=== PATIENT | female | born 1930 | race Caucasian/White ===

== ENCOUNTER 2020-04-02 12:13 | Day surgery (SDC) | payer MEDICARE, BC ==
[2020-04-02] MEDS ORDERED: Sodium Chloride 0.9% 20 ML ONE (12:53)
[2020-04-02] MEDS ORDERED: Acetaminophen 500 MG TAB PO SCH (13:00)
[2020-04-02] MEDS ORDERED: diphenhydrAMINE 25 MG CAP PO SCH (13:00)
[2020-04-02 16:43] VITALS: BP 151/64; TEMP 97.8
== END 2020-04-02 19:00 | disposition home or self-care (01) ==
LOC: ONC/OP 12:13 → ONC 12:16 → ONC/OP 19:00
PROVIDERS: ATTEND Internal Medicine Hematology & Oncology
PROC: 30233N1 Transfusion of Nonautologous Red Blood Cells into Peripheral Vein, Percutaneous Approach (ICD-10-PCS; principal; 2020-04-02)
DX: D64.9 Anemia, unspecified (principal); D69.6 Thrombocytopenia, unspecified
CPT/HCPCS: 36430; 86850; 86900; 86901; P9016; Q0163

== ENCOUNTER 2020-05-04 10:07 | Day surgery (SDC) | payer MEDICARE, BC ==
[2020-05-04] MEDS ORDERED: diphenhydrAMINE 25 MG CAP PO SCH (10:15)
[2020-05-04] MEDS ORDERED: Acetaminophen 500 MG TAB PO SCH (10:15)
[2020-05-04] MEDS ORDERED: Sodium Chloride 0.9% 30 ML ONE (11:11)
[2020-05-04 14:09] VITALS: BP 156/71; TEMP 98
== END 2020-05-04 14:09 | disposition home or self-care (01) ==
LOC: ONC/OP 10:07
PROVIDERS: ATTEND Internal Medicine Hematology & Oncology
PROC: 30233N1 Transfusion of Nonautologous Red Blood Cells into Peripheral Vein, Percutaneous Approach (ICD-10-PCS; principal; 2020-05-04)
DX: D64.9 Anemia, unspecified (principal); D69.6 Thrombocytopenia, unspecified; D50.0 Iron deficiency anemia secondary to blood loss (chronic); D72.818 Other decreased white blood cell count; D51.3 Other dietary vitamin B12 deficiency anemia; D63.1 Anemia in chronic kidney disease; N18.30 Chronic kidney disease, stage 3 unspecified
CPT/HCPCS: 36415; 36430; 82728; 83540; 83550; 86850; 86900; 86901; J1642; P9016; Q0163

== ENCOUNTER 2020-08-17 08:57 | Day surgery (SDC) | payer MEDICARE, BC ==
[2020-08-17] MEDS ORDERED: Sodium Chloride 0.9% 20 ML ONE (09:35)
[2020-08-17] MEDS ORDERED: Acetaminophen 500 MG TAB PO SCH (10:00)
[2020-08-17] MEDS ORDERED: diphenhydrAMINE 25 MG CAP PO SCH (10:00)
[2020-08-17 14:18] VITALS: BP 160/72; TEMP 97.8
== END 2020-08-17 14:24 | disposition home or self-care (01) ==
LOC: ONC/OP 08:57
PROVIDERS: ATTEND Internal Medicine Hematology & Oncology
PROC: 30233N1 Transfusion of Nonautologous Red Blood Cells into Peripheral Vein, Percutaneous Approach (ICD-10-PCS; principal; 2020-08-17)
DX: D64.9 Anemia, unspecified (principal); D69.6 Thrombocytopenia, unspecified
CPT/HCPCS: 36430; 86850; 86900; 86901; P9016; Q0163

== ENCOUNTER 2021-12-02 12:42 | Outpatient (CLI) | payer MEDICARE, BC | END 2021-12-02 12:43 | disposition home or self-care (01) | LOC: BICRAD 12:42 | PROVIDERS: ATTEND Nurse Practitioner Family | DX: M25.531 Pain in right wrist (principal); M19.031 Primary osteoarthritis, right wrist ==

== ENCOUNTER 2022-01-20 09:06 | Inpatient (IN) | payer MEDICARE, BC ==
[2022-01-20 10:16] LABS: #Lymphocytes 0.3 thou/uL (1.20-3.40); #Monocytes 0.4 thou/uL (0.11-0.59); #Neutrophils 5.5 thou/uL (1.40-6.50); %Basophils 0.5 % (0.0-1.0); %Eosinophils 0.3 % (0.0-10.0); %Lymphocytes 5.1 % (21.0-51.0); %Monocytes 6.2 % (0.0-10.0); Hemoglobin 12.8 g/dL (12.0-16.0); Mean Corpuscular HGB CONC 33.5 g/dL (32.0-36.0); Mean Corpuscular Hemoglobin 33.3 pg (27.0-31.0); Mean Corpuscular Volume 99.6 fl (78.0-98.0); Mean Platelet Volume 9.2 fL (7.4-10.4); Platelet Count 214 thou/uL (130-400); RBC Distribution Width 15.7 % (11.5-14.5); Red Blood Cell (RBC) Count 3.83 mill/uL (4.20-5.40); White Blood Cell (WBC) Count 6.2 thou/uL (4.8-10.8)
[2022-01-20 10:17] LABS: Bilirubin Negative (Negative); Blood, Urine 1+ (Negative); Clarity Extra Turbid (Clear); Glucose, Urine (Dipstick) Normal (Negative); Ketone, Urine 10 mg/dL (Negative); Leukocyte 500 Leu/uL (Negative); Nitrite Negative (Negative); Protein, Urine (Dipstick) 200 mg/dL (Neg-Trace); Specific Gravity, Urine 1.013 (1.002-1.036); Urobilinogen Normal mg/dL (Less than 2); WBC/HPF Greater than 50 HPF (0-3)
[2022-01-20 10:23] LABS: Bacteria/HPF 4+ HPF (None Seen)
[2022-01-20] MEDS ORDERED: cefTRIAXone\\ROCEPHIN 1 GM VIAL ONE (10:34)
[2022-01-20] MEDS ORDERED: Ondansetron PF 4 MG/2 ML Vial ONE (10:34)
[2022-01-20 10:40] LABS: ALT (SGPT) 7 U/L (8-55); AST (SGOT) 16 U/L (5-34); Albumin 4.1 g/dL (3.4-4.8); Alkaline Phosphatase 80 U/L (40-110); Anion Gap 17 mmol/L (10-20); BUN (Urea Nitrogen) 10 mg/dL (9.8-20.1); Bilirubin, Total 0.6 mg/dL (0.2-1.2); Calc. Creatinine Clearance 0 mL/min (70-130); Carbon Dioxide 18 mmol/L (23-31); Chloride 80 mmol/L (98-107); Estimated GFR 79; Globulin 2.8 g/dL (2.4-3.5); Glucose 146 mg/dL (83-110); Lipase 27 U/L (8-78); Potassium 4.5 mmol/L (3.5-5.1); Protein, Total 6.9 g/dL (5.8-8.1)
[2022-01-20 11:06] LABS: Sodium 110 mmol/L (136-145)
[2022-01-20 12:31] LABS: Anion Gap 12 mmol/L (10-20); BUN (Urea Nitrogen) 9 mg/dL (9.8-20.1); Calc. Creatinine Clearance 0 mL/min (70-130); Calcium 8.4 mg/dL (7.8-10.44); Carbon Dioxide 21 mmol/L (23-31); Chloride 84 mmol/L (98-107); Estimated GFR 84; Glucose 123 mg/dL (83-110); Potassium 4.4 mmol/L (3.5-5.1)
[2022-01-20 12:36] LABS: Sodium 113 mmol/L (136-145)
[2022-01-20] MEDS ORDERED: Ondansetron PF 4 MG/2 ML Vial IVP PRN (12:38)
[2022-01-20] MEDS ORDERED: Acetaminophen 325 MG TAB PO PRN (12:38)
[2022-01-20] MEDS ORDERED: Iopamidol-370 76% 500 ML 1 ML ONE (14:17)
[2022-01-20 14:43] LABS: Anion Gap 14 mmol/L (10-20); BUN (Urea Nitrogen) 9 mg/dL (9.8-20.1); Calc. Creatinine Clearance 0 mL/min (70-130); Calcium 8.7 mg/dL (7.8-10.44); Carbon Dioxide 17 mmol/L (23-31); Chloride 85 mmol/L (98-107); Estimated GFR 84; Glucose 126 mg/dL (83-110); Magnesium 1.5 mg/dL (1.6-2.6); Potassium 4.2 mmol/L (3.5-5.1)
[2022-01-20 14:49] LABS: Sodium 112 mmol/L (136-145)
[2022-01-20 16:57] VITALS: BMI 34.0
[2022-01-20 17:01] LABS: Anion Gap 13 mmol/L (10-20); BUN (Urea Nitrogen) 9 mg/dL (9.8-20.1); Calc. Creatinine Clearance 75 mL/min (70-130); Carbon Dioxide 19 mmol/L (23-31); Chloride 85 mmol/L (98-107); Estimated GFR 83; Glucose 116 mg/dL (83-110); Potassium 4.2 mmol/L (3.5-5.1)
[2022-01-20 17:20] LABS: Sodium 113 mmol/L (136-145)
[2022-01-20] MEDS ORDERED: FLU VACC QS2022-23(65YR UP)/PF 240 MCG/0.7 ML SYRINGE IM ONE (17:30)
[2022-01-20 18:42] LABS: Anion Gap 14 mmol/L (10-20); BUN (Urea Nitrogen) 8 mg/dL (9.8-20.1); Calc. Creatinine Clearance 73 mL/min (70-130); Calcium 8.9 mg/dL (7.8-10.44); Carbon Dioxide 18 mmol/L (23-31); Chloride 85 mmol/L (98-107); Estimated GFR 83; Glucose 142 mg/dL (83-110); Potassium 4.2 mmol/L (3.5-5.1)
[2022-01-20 18:51] LABS: Sodium 113 mmol/L (136-145)
[2022-01-20 19:15] LABS: SARS-CoV-2 NAA Rapid Test Not Detected (NotDetected)
[2022-01-20] MEDS ORDERED: Sodium Chloride 0.9% 1,000 ML IV SCH (21:30)
[2022-01-20 23:38] LABS: Anion Gap 13 mmol/L (10-20); BUN (Urea Nitrogen) 9 mg/dL (9.8-20.1); Calc. Creatinine Clearance 83 mL/min (70-130); Calcium 8.5 mg/dL (7.8-10.44); Carbon Dioxide 18 mmol/L (23-31); Chloride 85 mmol/L (98-107); Estimated GFR 85; Glucose 93 mg/dL (83-110); Potassium 3.8 mmol/L (3.5-5.1)
[2022-01-20 23:46] LABS: Sodium 112 mmol/L (136-145)
[2022-01-21 04:42] LABS: #Eosinphils 0.1 thou/uL (0.0-0.7); #Lymphocytes 0.5 thou/uL (1.20-3.40); #Monocytes 0.7 thou/uL (0.11-0.59); #Neutrophils 4.1 thou/uL (1.40-6.50); %Basophils 0.1 % (0.0-1.0); %Eosinophils 0.9 % (0.0-10.0); %Lymphocytes 9.4 % (21.0-51.0); %Monocytes 12.9 % (0.0-10.0); %Neutrophils 76.7 % (42.0-75.0); Hemoglobin 11.1 g/dL (12.0-16.0); Mean Corpuscular HGB CONC 33.4 g/dL (32.0-36.0); Mean Corpuscular Hemoglobin 33.7 pg (27.0-31.0); Mean Platelet Volume 7.7 fL (7.4-10.4); Platelet Count 185 thou/uL (130-400); RBC Distribution Width 15.5 % (11.5-14.5); White Blood Cell (WBC) Count 5.3 thou/uL (4.8-10.8)
[2022-01-21 05:05] LABS: Anion Gap 11 mmol/L (10-20); BUN (Urea Nitrogen) 8 mg/dL (9.8-20.1); Calc. Creatinine Clearance 82 mL/min (70-130); Calcium 8.4 mg/dL (7.8-10.44); Carbon Dioxide 21 mmol/L (23-31); Chloride 86 mmol/L (98-107); Estimated GFR 85; Glucose 88 mg/dL (83-110); Potassium 3.7 mmol/L (3.5-5.1)
[2022-01-21 05:11] LABS: Sodium 114 mmol/L (136-145)
[2022-01-21] MEDS: Levothyroxine Sodium 50 MCG TAB PO SCH (06:00)
[2022-01-21] MEDS ORDERED: Sodium Chloride 0.9% 1,000 ML IV SCH ×2 (06:42→12:40)
[2022-01-21] MEDS ORDERED: Magnesium 2 GM/50 ML(in water) 2 GM in Premix Bag 1 BAG IVPB SCH (07:45)
[2022-01-21] MEDS ORDERED: Ondansetron ODT 8 MG TAB SL SCH (09:25)
[2022-01-21] MEDS: Cholecalciferol (Vitamin D3) 400 UNITS TAB PO SCH (09:44)
[2022-01-21] MEDS: Enoxaparin Sodium 40 MG/0.4 ML SYRINGE SC SCH (09:44)
[2022-01-21] MEDS: Potassium Chloride 10 MEQ TAB PO SCH ×2 (09:44→09:56)
[2022-01-21 11:21] LABS: Anion Gap 13 mmol/L (10-20); BUN (Urea Nitrogen) 8 mg/dL (9.8-20.1); Calc. Creatinine Clearance 78 mL/min (70-130); Calcium 8.7 mg/dL (7.8-10.44); Carbon Dioxide 21 mmol/L (23-31); Chloride 85 mmol/L (98-107); Estimated GFR 84; Glucose 98 mg/dL (83-110); Potassium 3.8 mmol/L (3.5-5.1)
[2022-01-21 11:38] LABS: Sodium 115 mmol/L (136-145)
[2022-01-21] MEDS: cefTRIAXone\\ROCEPHIN 1 GM in Sodium Chloride 0.9% 100 ML IVPB SCH (16:14)
[2022-01-21 16:30] LABS: Anion Gap 14 mmol/L (10-20); BUN (Urea Nitrogen) 6 mg/dL (9.8-20.1); Calc. Creatinine Clearance 86 mL/min (70-130); Calcium 8.3 mg/dL (7.8-10.44); Carbon Dioxide 17 mmol/L (23-31); Chloride 88 mmol/L (98-107); Estimated GFR 86; Glucose 99 mg/dL (83-110); Magnesium 2.3 mg/dL (1.6-2.6); Potassium 4.8 mmol/L (3.5-5.1)
[2022-01-21 16:53] LABS: Sodium 114 mmol/L (136-145)
[2022-01-21 20:26] LABS: Anion Gap 14 mmol/L (10-20); BUN (Urea Nitrogen) 7 mg/dL (9.8-20.1); Calc. Creatinine Clearance 82 mL/min (70-130); Calcium 8.4 mg/dL (7.8-10.44); Carbon Dioxide 17 mmol/L (23-31); Chloride 88 mmol/L (98-107); Estimated GFR 85; Glucose 94 mg/dL (83-110); Potassium 4.3 mmol/L (3.5-5.1)
[2022-01-21 20:34] LABS: Sodium 115 mmol/L (136-145)
[2022-01-21] MEDS ORDERED: Simvastatin 40 MG TAB PO SCH (21:00)
[2022-01-21] MEDS ORDERED: Atorvastatin Calcium 20 MG TAB PO SCH (21:00)
[2022-01-21 23:03] LABS: Anion Gap 12 mmol/L (10-20); BUN (Urea Nitrogen) 7 mg/dL (9.8-20.1); Calc. Creatinine Clearance 85 mL/min (70-130); Calcium 8.5 mg/dL (7.8-10.44); Carbon Dioxide 21 mmol/L (23-31); Chloride 90 mmol/L (98-107); Estimated GFR 86; Glucose 86 mg/dL (83-110); Potassium 3.8 mmol/L (3.5-5.1)
[2022-01-21 23:09] LABS: Sodium 119 mmol/L (136-145)
[2022-01-22 04:58] LABS: #Eosinphils 0.1 thou/uL (0.0-0.7); #Lymphocytes 0.4 thou/uL (1.20-3.40); #Monocytes 0.5 thou/uL (0.11-0.59); #Neutrophils 3.2 thou/uL (1.40-6.50); %Basophils 0.6 % (0.0-1.0); %Eosinophils 2.1 % (0.0-10.0); %Lymphocytes 9.4 % (21.0-51.0); %Monocytes 11.1 % (0.0-10.0); %Neutrophils 76.8 % (42.0-75.0); Hemoglobin 11.8 g/dL (12.0-16.0); Mean Corpuscular HGB CONC 32.2 g/dL (32.0-36.0); Mean Corpuscular Hemoglobin 32.8 pg (27.0-31.0); Mean Platelet Volume 9.9 fL (7.4-10.4); Platelet Count 135 thou/uL (130-400); RBC Distribution Width 15.5 % (11.5-14.5); Red Blood Cell (RBC) Count 3.58 mill/uL (4.20-5.40); White Blood Cell (WBC) Count 4.2 thou/uL (4.8-10.8)
[2022-01-22] MEDS: Levothyroxine Sodium 50 MCG TAB PO SCH (05:24)
[2022-01-22 08:32] LABS: Anion Gap 14 mmol/L (10-20); BUN (Urea Nitrogen) 8 mg/dL (9.8-20.1); Calc. Creatinine Clearance 80 mL/min (70-130); Calcium 8.8 mg/dL (7.8-10.44); Carbon Dioxide 21 mmol/L (23-31); Chloride 93 mmol/L (98-107); Estimated GFR 85; Glucose 79 mg/dL (83-110); Potassium 3.7 mmol/L (3.5-5.1); Sodium 124 mmol/L (136-145)
[2022-01-22] MEDS: Enoxaparin Sodium 40 MG/0.4 ML SYRINGE SC SCH (08:37)
[2022-01-22] MEDS: Potassium Chloride 10 MEQ TAB PO SCH (08:37)
[2022-01-22] MEDS: Cholecalciferol (Vitamin D3) 400 UNITS TAB PO SCH (08:38)
[2022-01-22] MEDS: Fenofibrate 48 MG TAB PO SCH (08:41)
[2022-01-22] MEDS: Folic Acid 1 MG TAB PO SCH (08:41)
[2022-01-22] MEDS ORDERED: Pantoprazole 40 MG GRANULES PACKET PO SCH (09:00)
[2022-01-22] MEDS ORDERED: FENOFIBRATE 54 MG PO SCH (09:00)
[2022-01-22] MEDS: cefTRIAXone\\ROCEPHIN 1 GM in Sodium Chloride 0.9% 100 ML IVPB SCH (11:46)
[2022-01-22 15:24] LABS: Anion Gap 12 mmol/L (10-20); BUN (Urea Nitrogen) 9 mg/dL (9.8-20.1); Calc. Creatinine Clearance 64 mL/min (70-130); Calcium 9.3 mg/dL (7.8-10.44); Carbon Dioxide 24 mmol/L (23-31); Chloride 95 mmol/L (98-107); Estimated GFR 74; Glucose 112 mg/dL (83-110); Sodium 127 mmol/L (136-145)
[2022-01-22] MEDS ORDERED: Dextrose 5% in Water 1,000 ML IV SCH (16:45)
[2022-01-22 19:37] LABS: Anion Gap 12 mmol/L (10-20); BUN (Urea Nitrogen) 11 mg/dL (9.8-20.1); Calc. Creatinine Clearance 58 mL/min (70-130); Calcium 8.9 mg/dL (7.8-10.44); Carbon Dioxide 24 mmol/L (23-31); Chloride 96 mmol/L (98-107); Estimated GFR 65; Glucose 121 mg/dL (83-110); Potassium 3.7 mmol/L (3.5-5.1); Sodium 128 mmol/L (136-145)
[2022-01-22] MEDS: NIFEdipine XL 90 MG TAB PO SCH (20:22)
[2022-01-22] MEDS: Atorvastatin Calcium 20 MG TAB PO SCH (20:22)
[2022-01-22] MEDS ORDERED: Simvastatin 40 MG TAB PO SCH (21:00)
[2022-01-22] MEDS: Dextrose 5% in Water 1,000 ML IV SCH (23:16)
[2022-01-23] MEDS: Levothyroxine Sodium 50 MCG TAB PO SCH (05:15)
[2022-01-23] MEDS: Dextrose 5% in Water 1,000 ML IV SCH (05:22)
[2022-01-23] MEDS: Folic Acid 1 MG TAB PO SCH (09:02)
[2022-01-23] MEDS: Potassium Chloride 10 MEQ TAB PO SCH (09:02)
[2022-01-23] MEDS: Cholecalciferol (Vitamin D3) 400 UNITS TAB PO SCH (09:02)
[2022-01-23] MEDS: Fenofibrate 48 MG TAB PO SCH (09:03)
[2022-01-23] MEDS: Losartan 25 MG TAB PO SCH (09:03)
[2022-01-23] MEDS: Enoxaparin Sodium 40 MG/0.4 ML SYRINGE SC SCH (09:04)
[2022-01-23 09:28] LABS: Anion Gap 9 mmol/L (10-20); BUN (Urea Nitrogen) 14 mg/dL (9.8-20.1); Calc. Creatinine Clearance 64 mL/min (70-130); Calcium 8.6 mg/dL (7.8-10.44); Carbon Dioxide 26 mmol/L (23-31); Chloride 94 mmol/L (98-107); Estimated GFR 75; Glucose 173 mg/dL (83-110); Potassium 3.3 mmol/L (3.5-5.1); Sodium 126 mmol/L (136-145)
[2022-01-23] MEDS ORDERED: Potassium Chloride 20 MEQ TAB PO SCH (09:45)
[2022-01-23] MEDS: cefTRIAXone\\ROCEPHIN 1 GM in Sodium Chloride 0.9% 100 ML IVPB SCH (10:56)
[2022-01-23 15:53] LABS: Anion Gap 12 mmol/L (10-20); BUN (Urea Nitrogen) 12 mg/dL (9.8-20.1); Calc. Creatinine Clearance 67 mL/min (70-130); Carbon Dioxide 22 mmol/L (23-31); Chloride 93 mmol/L (98-107); Estimated GFR 79; Glucose 146 mg/dL (83-110); Magnesium 1.9 mg/dL (1.6-2.6); Potassium 4.2 mmol/L (3.5-5.1); Sodium 123 mmol/L (136-145)
[2022-01-23] MEDS: NIFEdipine XL 90 MG TAB PO SCH (20:46)
[2022-01-23] MEDS: Atorvastatin Calcium 20 MG TAB PO SCH (20:47)
[2022-01-23] MEDS ORDERED: Sodium Chloride 0.9% 500 ML IV SCH (23:30)
[2022-01-23 23:52] LABS: Anion Gap 13 mmol/L (10-20); BUN (Urea Nitrogen) 11 mg/dL (9.8-20.1); Calc. Creatinine Clearance 68 mL/min (70-130); Calcium 8.8 mg/dL (7.8-10.44); Carbon Dioxide 24 mmol/L (23-31); Chloride 96 mmol/L (98-107); Estimated GFR 80; Glucose 135 mg/dL (83-110); Magnesium 1.9 mg/dL (1.6-2.6); Potassium 4.7 mmol/L (3.5-5.1); Sodium 128 mmol/L (136-145)
[2022-01-24] MEDS: Levothyroxine Sodium 50 MCG TAB PO SCH (04:25)
[2022-01-24 04:50] LABS: Anion Gap 11 mmol/L (10-20); BUN (Urea Nitrogen) 13 mg/dL (9.8-20.1); Calc. Creatinine Clearance 67 mL/min (70-130); Calcium 9.1 mg/dL (7.8-10.44); Carbon Dioxide 24 mmol/L (23-31); Chloride 96 mmol/L (98-107); Estimated GFR 79; Glucose 124 mg/dL (83-110); Potassium 4.5 mmol/L (3.5-5.1); Sodium 126 mmol/L (136-145)
[2022-01-24] MEDS: Fenofibrate 48 MG TAB PO SCH (09:15)
[2022-01-24] MEDS: Folic Acid 1 MG TAB PO SCH (09:15)
[2022-01-24] MEDS: Potassium Chloride 10 MEQ TAB PO SCH (09:15)
[2022-01-24] MEDS: Enoxaparin Sodium 80 MG/0.8 ML SYRINGE SC SCH ×2 (09:15→20:16)
[2022-01-24] MEDS: Cholecalciferol (Vitamin D3) 400 UNITS TAB PO SCH (09:15)
[2022-01-24] MEDS: Losartan 25 MG TAB PO SCH (09:16)
[2022-01-24 10:15] LABS: Anion Gap 13 mmol/L (10-20); BUN (Urea Nitrogen) 12 mg/dL (9.8-20.1); Calc. Creatinine Clearance 65 mL/min (70-130); Calcium 9.4 mg/dL (7.8-10.44); Carbon Dioxide 22 mmol/L (23-31); Chloride 95 mmol/L (98-107); Estimated GFR 76; Glucose 133 mg/dL (83-110); Potassium 4.7 mmol/L (3.5-5.1); Sodium 125 mmol/L (136-145)
[2022-01-24] MEDS: cefTRIAXone\\ROCEPHIN 1 GM in Sodium Chloride 0.9% 100 ML IVPB SCH (13:30)
[2022-01-24 19:21] LABS: Anion Gap 17 mmol/L (10-20); Calcium 9.2 mg/dL (7.8-10.44); Carbon Dioxide 17 mmol/L (23-31); Chloride 99 mmol/L (98-107); Glucose 123 mg/dL (83-110); Potassium 5.6 mmol/L (3.5-5.1); Sodium 127 mmol/L (136-145)
[2022-01-24 19:22] LABS: BUN (Urea Nitrogen) 11 mg/dL (9.8-20.1); Calc. Creatinine Clearance 68 mL/min (70-130); Estimated GFR 80
[2022-01-24] MEDS: NIFEdipine XL 90 MG TAB PO SCH (20:16)
[2022-01-24] MEDS: Atorvastatin Calcium 20 MG TAB PO SCH (20:16)
[2022-01-24] MEDS: Melatonin 3 MG TAB PO PRN (20:16)
[2022-01-25] MEDS: Levothyroxine Sodium 50 MCG TAB PO SCH (04:35)
[2022-01-25 04:40] LABS: Anion Gap 11 mmol/L (10-20); BUN (Urea Nitrogen) 13 mg/dL (9.8-20.1); Calc. Creatinine Clearance 64 mL/min (70-130); Calcium 9.4 mg/dL (7.8-10.44); Carbon Dioxide 24 mmol/L (23-31); Chloride 100 mmol/L (98-107); Estimated GFR 77; Glucose 114 mg/dL (83-110); Potassium 4.8 mmol/L (3.5-5.1); Sodium 130 mmol/L (136-145)
[2022-01-25] MEDS: Cholecalciferol (Vitamin D3) 400 UNITS TAB PO SCH (09:38)
[2022-01-25] MEDS: Apixaban 5 MG TAB PO SCH ×2 (09:38→20:22)
[2022-01-25] MEDS: Fenofibrate 48 MG TAB PO SCH (09:39)
[2022-01-25] MEDS: Folic Acid 1 MG TAB PO SCH (09:39)
[2022-01-25] MEDS ORDERED: Docusate 100 MG CAP PO SCH (12:30)
[2022-01-25] MEDS ORDERED: Polyethylene Glycol 3350 17 GM Packet PO SCH (12:30)
[2022-01-25] MEDS: NIFEdipine XL 90 MG TAB PO SCH (20:22)
[2022-01-25] MEDS: Melatonin 3 MG TAB PO PRN (20:22)
[2022-01-25] MEDS: Atorvastatin Calcium 20 MG TAB PO SCH (20:22)
[2022-01-26 05:03] LABS: Anion Gap 11 mmol/L (10-20); BUN (Urea Nitrogen) 18 mg/dL (9.8-20.1); Calc. Creatinine Clearance 61 mL/min (70-130); Calcium 9.4 mg/dL (7.8-10.44); Carbon Dioxide 27 mmol/L (23-31); Chloride 102 mmol/L (98-107); Estimated GFR 71; Glucose 126 mg/dL (83-110); Potassium 4.7 mmol/L (3.5-5.1); Sodium 135 mmol/L (136-145)
[2022-01-26] MEDS: Levothyroxine Sodium 50 MCG TAB PO SCH (05:34)
[2022-01-26] MEDS: Cholecalciferol (Vitamin D3) 400 UNITS TAB PO SCH (09:20)
[2022-01-26] MEDS: Potassium Chloride 10 MEQ TAB PO SCH (09:20)
[2022-01-26] MEDS: Folic Acid 1 MG TAB PO SCH (09:20)
[2022-01-26] MEDS: Fenofibrate 48 MG TAB PO SCH (09:20)
[2022-01-26] MEDS: Apixaban 5 MG TAB PO SCH (09:20)
[2022-01-26] MEDS ORDERED: Docusate 100 MG CAP PO SCH (09:45)
[2022-01-26] MEDS ORDERED: Polyethylene Glycol 3350 17 GM Packet PO SCH (09:45)
[2022-01-26 12:03] VITALS: BP 149/57; TEMP 96.4
== END 2022-01-26 14:15 | disposition home health service (06) | DRG 644 ==
LOC: ERS 09:06 → ERHOLD 12:50 → 2NO 16:28 → MSONC 01-23 17:20 → 2NO 01-24 00:37
PROVIDERS: ADMIT Internal Medicine; ATTEND Internal Medicine
DX: E22.2 Syndrome of inappropriate secretion of antidiuretic hormone (principal); I13.0 Hypertensive heart and chronic kidney disease with heart failure and stage 1 through stage 4 chronic kidney disease, or unspecified chronic kidney disease; N39.0 Urinary tract infection, site not specified; N17.9 Acute kidney failure, unspecified; I50.32 Chronic diastolic (congestive) heart failure; E78.00 Pure hypercholesterolemia, unspecified; E03.9 Hypothyroidism, unspecified; E55.9 Vitamin D deficiency, unspecified; D63.1 Anemia in chronic kidney disease; N18.2 Chronic kidney disease, stage 2 (mild); K21.9 Gastro-esophageal reflux disease without esophagitis; B96.20 Unspecified Escherichia coli [E. coli] as the cause of diseases classified elsewhere; I48.0 Paroxysmal atrial fibrillation; I27.20 Pulmonary hypertension, unspecified; I08.1 Rheumatic disorders of both mitral and tricuspid valves; Z20.822 Contact with and (suspected) exposure to COVID-19; Z90.49 Acquired absence of other specified parts of digestive tract; Z90.89 Acquired absence of other organs; Z98.890 Other specified postprocedural states; Z90.721 Acquired absence of ovaries, unilateral; Z79.899 Other long term (current) drug therapy; Z79.890 Hormone replacement therapy; I25.2 Old myocardial infarction
CPT/HCPCS: 36415; 36416; 74177; 80048; 80053; 81003; 81015; 82533; 82550; 83690; 83735; 83880; 83930; 83935; 84300; 84443; 84484; 85025; 87077; 87086; 87186; 93005; 93010; 93306; 97139; J0696; J1650; J2405; J3475; J3490; J7050; J7070; Q0162; Q9967

== ENCOUNTER 2022-01-31 09:37 | Day surgery (SDC) | payer MEDICARE, BC ==
[2022-01-31] MEDS ORDERED: diphenhydrAMINE 25 MG CAP ONE (11:20)
[2022-01-31] MEDS ORDERED: Acetaminophen 500 MG TAB ONE (11:20)
[2022-01-31] MEDS ORDERED: diphenhydrAMINE 25 MG CAP PO SCH (11:30)
[2022-01-31] MEDS ORDERED: Acetaminophen 500 MG TAB PO SCH (11:30)
[2022-01-31] MEDS ORDERED: Ondansetron PF 4 MG/2 ML Vial IVP SCH (11:45)
[2022-01-31] MEDS ORDERED: Ondansetron PF 4 MG/2 ML Vial ONE (12:20)
[2022-01-31 17:47] VITALS: BP 142/66; TEMP 97.8
== END 2022-01-31 17:49 | disposition home or self-care (01) ==
LOC: ONC/OP 09:37
PROVIDERS: ATTEND Internal Medicine Hematology & Oncology
PROC: 30233N1 Transfusion of Nonautologous Red Blood Cells into Peripheral Vein, Percutaneous Approach (ICD-10-PCS; principal; 2022-01-31)
DX: D64.9 Anemia, unspecified (principal); D69.6 Thrombocytopenia, unspecified; D72.818 Other decreased white blood cell count; D50.0 Iron deficiency anemia secondary to blood loss (chronic); D51.3 Other dietary vitamin B12 deficiency anemia; N18.30 Chronic kidney disease, stage 3 unspecified; D63.1 Anemia in chronic kidney disease
CPT/HCPCS: 36430; 80048; 85046; 86850; 86900; 86901; J2405; P9016

== ENCOUNTER 2022-02-02 23:00 | Inpatient (IN) | payer MEDICARE, BC ==
[2022-02-03 00:38] LABS: #Lymphocytes 0.5 thou/uL (1.20-3.40); #Monocytes 0.7 thou/uL (0.11-0.59); #Neutrophils 6.7 thou/uL (1.40-6.50); %Basophils 0.3 % (0.0-1.0); %Eosinophils 0.5 % (0.0-10.0); %Lymphocytes 6.8 % (21.0-51.0); %Monocytes 8.6 % (0.0-10.0); %Neutrophils 83.7 % (42.0-75.0); Mean Corpuscular HGB CONC 33.7 g/dL (32.0-36.0); Mean Corpuscular Hemoglobin 34.1 pg (27.0-31.0); Platelet Count 212 10x3/uL (130-400); RBC Distribution Width 17.6 % (11.5-14.5); Red Blood Cell (RBC) Count 2.05 mill/uL (4.20-5.40); White Blood Cell (WBC) Count 7.9 10x3/uL (4.8-10.8)
[2022-02-03 00:54] LABS: ALT (SGPT) 7 U/L (8-55); AST (SGOT) 12 U/L (5-34); Albumin 3.3 g/dL (3.4-4.8); Alkaline Phosphatase 45 U/L (40-110); Anion Gap 17 mmol/L (10-20); BUN (Urea Nitrogen) 30 mg/dL (9.8-20.1); Bilirubin, Total 0.4 mg/dL (0.2-1.2); Calc. Creatinine Clearance 0 mL/min (70-130); Calcium 8.7 mg/dL (7.8-10.44); Carbon Dioxide 18 mmol/L (23-31); Chloride 96 mmol/L (98-107); Estimated GFR 65; Globulin 2.2 g/dL (2.4-3.5); Glucose 131 mg/dL (83-110); Potassium 4.6 mmol/L (3.5-5.1); Protein, Total 5.5 g/dL (5.8-8.1); Sodium 126 mmol/L (136-145)
[2022-02-03] MEDS ORDERED: Morphine 4 MG/ML VIAL ONE (02:41)
[2022-02-03] MEDS ORDERED: Furosemide 20 MG/2 ML VIAL ONE (02:42)
[2022-02-03] MEDS ORDERED: Ondansetron PF 4 MG/2 ML Vial IVP PRN (04:22)
[2022-02-03] MEDS ORDERED: Pantoprazole 40 MG VIAL ONE (04:27)
[2022-02-03] MEDS: Furosemide 20 MG/2 ML VIAL SLOW IVP SCH ×2 (05:38→16:13)
[2022-02-03 05:42] VITALS: BMI 32.5
[2022-02-03] MEDS: Levothyroxine Sodium 50 MCG TAB PO SCH (06:47)
[2022-02-03 07:34] LABS: Iron 52 ug/dL (50-170); Iron Binding Capacity, Total 239 mcg/dL (265-497)
[2022-02-03 10:31] LABS: Hemoglobin 6.7 g/dL (12.0-16.0)
[2022-02-03] MEDS: Cholecalciferol 1,000 UNITS (25 MCG) TAB PO SCH (10:43)
[2022-02-03] MEDS: Fenofibrate 48 MG TAB PO SCH (10:44)
[2022-02-03] MEDS: Folic Acid 1 MG TAB PO SCH (10:44)
[2022-02-03] MEDS: Pantoprazole 40 MG VIAL IVP SCH ×2 (10:45→20:05)
[2022-02-03 11:19] LABS: Anion Gap 12 mmol/L (10-20); BUN (Urea Nitrogen) 28 mg/dL (9.8-20.1); Calc. Creatinine Clearance 57 mL/min (70-130); Calcium 8.8 mg/dL (7.8-10.44); Carbon Dioxide 26 mmol/L (23-31); Chloride 96 mmol/L (98-107); Estimated GFR 65; Glucose 117 mg/dL (83-110); Potassium 4.1 mmol/L (3.5-5.1); Sodium 130 mmol/L (136-145)
[2022-02-03] MEDS ORDERED: Acetaminophen 325 MG TAB PO SCH (11:30)
[2022-02-03] MEDS ORDERED: diphenhydrAMINE 50 MG/ML VIAL IVP SCH (11:30)
[2022-02-03 18:12] LABS: Hemoglobin 7.8 g/dL (12.0-16.0)
[2022-02-03] MEDS: NIFEdipine XL 90 MG TAB PO SCH (20:05)
[2022-02-03] MEDS: Atorvastatin Calcium 20 MG TAB PO SCH (20:05)
[2022-02-04 03:24] LABS: #Eosinphils 0.1 thou/uL (0.0-0.7); #Lymphocytes 0.4 thou/uL (1.20-3.40); #Monocytes 0.5 thou/uL (0.11-0.59); #Neutrophils 4.9 thou/uL (1.40-6.50); %Basophils 0.3 % (0.0-1.0); %Eosinophils 1.2 % (0.0-10.0); %Lymphocytes 7.1 % (21.0-51.0); %Monocytes 8.6 % (0.0-10.0); %Neutrophils 82.9 % (42.0-75.0); Hemoglobin 7.7 g/dL (12.0-16.0); Mean Corpuscular HGB CONC 32.9 g/dL (32.0-36.0); Mean Platelet Volume 7.9 fL (7.4-10.4); Platelet Count 225 10x3/uL (130-400); RBC Distribution Width 17.2 % (11.5-14.5); Red Blood Cell (RBC) Count 2.33 mill/uL (4.20-5.40); White Blood Cell (WBC) Count 5.9 10x3/uL (4.8-10.8)
[2022-02-04 04:04] LABS: Anion Gap 11 mmol/L (10-20); BUN (Urea Nitrogen) 24 mg/dL (9.8-20.1); Calc. Creatinine Clearance 57 mL/min (70-130); Calcium 8.6 mg/dL (7.8-10.44); Carbon Dioxide 27 mmol/L (23-31); Chloride 96 mmol/L (98-107); Estimated GFR 65; Glucose 94 mg/dL (83-110); Potassium 3.4 mmol/L (3.5-5.1); Sodium 131 mmol/L (136-145)
[2022-02-04] MEDS: Furosemide 20 MG/2 ML VIAL SLOW IVP SCH ×2 (06:06→15:29)
[2022-02-04] MEDS: Levothyroxine Sodium 50 MCG TAB PO SCH (06:06)
[2022-02-04] MEDS: Folic Acid 1 MG TAB PO SCH (09:05)
[2022-02-04] MEDS: Fenofibrate 48 MG TAB PO SCH (09:05)
[2022-02-04] MEDS: Cholecalciferol 1,000 UNITS (25 MCG) TAB PO SCH (09:06)
[2022-02-04] MEDS: Pantoprazole 40 MG VIAL IVP SCH ×2 (09:06→20:17)
[2022-02-04] MEDS ORDERED: Potassium Chloride 20 MEQ TAB PO SCH (10:15)
[2022-02-04] MEDS ORDERED: GoLYTELY 4,000 ml Bottle PO SCH (17:45)
[2022-02-04] MEDS: Atorvastatin Calcium 20 MG TAB PO SCH (20:17)
[2022-02-04] MEDS: NIFEdipine XL 90 MG TAB PO SCH (20:17)
[2022-02-05] MEDS: Furosemide 20 MG/2 ML VIAL SLOW IVP SCH ×2 (05:09→16:55)
[2022-02-05 05:16] LABS: Anion Gap 15 mmol/L (10-20); BUN (Urea Nitrogen) 19 mg/dL (9.8-20.1); Calc. Creatinine Clearance 61 mL/min (70-130); Calcium 8.5 mg/dL (7.8-10.44); Carbon Dioxide 27 mmol/L (23-31); Chloride 92 mmol/L (98-107); Estimated GFR 71; Glucose 90 mg/dL (83-110); Potassium 3.7 mmol/L (3.5-5.1); Sodium 130 mmol/L (136-145)
[2022-02-05 06:00] LABS: #Lymphocytes 0.5 thou/uL (1.20-3.40); #Monocytes 0.6 thou/uL (0.11-0.59); #Neutrophils 5.1 thou/uL (1.40-6.50); %Eosinophils 0.7 % (0.0-10.0); %Monocytes 9.3 % (0.0-10.0); %Neutrophils 82.1 % (42.0-75.0); Anisocytosis SLIGHT = 6-15 cells (100X) (0-5/hpf); Band 4 % (5-11); Burr Cells SLIGHT = 2-5 cells (100X) (0-1/hpf); Eosinophils 1 % (0-10); Hemoglobin 8.2 g/dL (12.0-16.0); Lymphocytes 10 % (21-51); MDiff Complete? YES; Macrocytosis SLIGHT = 6-15 cells (100X) (0-5/hpf); Mean Corpuscular HGB CONC 32.5 g/dL (32.0-36.0); Mean Corpuscular Hemoglobin 33.2 pg (27.0-31.0); Mean Platelet Volume 9.2 fL (7.4-10.4); Monocytes 7 % (0-10); Neutrophil 78 % (42-75); Nucleated RBC 2 % (0); Ovalocytes SLIGHT = 2-5 cells (100X) (0-1/hpf); Platelet Count 196 10x3/uL (130-400); Platelet Morphology Comment Appears Adequate; RBC Distribution Width 19.7 % (11.5-14.5); Red Blood Cell (RBC) Count 2.47 mill/uL (4.20-5.40); Target Cells SLIGHT = 2-5 cells (100X) (0-1/hpf); White Blood Cell (WBC) Count 6.3 10x3/uL (4.8-10.8)
[2022-02-05] MEDS: Fenofibrate 48 MG TAB PO SCH (09:00)
[2022-02-05] MEDS: Levothyroxine Sodium 50 MCG TAB PO SCH (12:19)
[2022-02-05] MEDS: Folic Acid 1 MG TAB PO SCH (12:19)
[2022-02-05] MEDS: Cholecalciferol 1,000 UNITS (25 MCG) TAB PO SCH (12:19)
[2022-02-05] MEDS: Pantoprazole 40 MG VIAL IVP SCH ×2 (12:55→21:36)
[2022-02-05] MEDS ORDERED: PROPOFOL 200 MG/20 ML VIAL ONE (14:58)
[2022-02-05] MEDS: Melatonin 3 MG TAB PO PRN (21:36)
[2022-02-05] MEDS: Atorvastatin Calcium 20 MG TAB PO SCH (21:36)
[2022-02-05] MEDS: NIFEdipine XL 90 MG TAB PO SCH (21:36)
[2022-02-06 04:27] LABS: #Eosinphils 0.1 thou/uL (0.0-0.7); #Lymphocytes 0.7 thou/uL (1.20-3.40); #Monocytes 0.6 thou/uL (0.11-0.59); #Neutrophils 5.3 thou/uL (1.40-6.50); %Basophils 0.1 % (0.0-1.0); %Lymphocytes 10.3 % (21.0-51.0); %Neutrophils 79.5 % (42.0-75.0); Hemoglobin 7.9 g/dL (12.0-16.0); Mean Corpuscular HGB CONC 33.2 g/dL (32.0-36.0); Mean Corpuscular Hemoglobin 34.6 pg (27.0-31.0); Mean Platelet Volume 7.6 fL (7.4-10.4); Platelet Count 271 10x3/uL (130-400); RBC Distribution Width 19.6 % (11.5-14.5); Red Blood Cell (RBC) Count 2.29 mill/uL (4.20-5.40); White Blood Cell (WBC) Count 6.6 10x3/uL (4.8-10.8)
[2022-02-06] MEDS: Levothyroxine Sodium 50 MCG TAB PO SCH (05:49)
[2022-02-06] MEDS: Furosemide 20 MG/2 ML VIAL SLOW IVP SCH ×2 (05:49→14:24)
[2022-02-06] MEDS: Folic Acid 1 MG TAB PO SCH (09:23)
[2022-02-06] MEDS: Cholecalciferol 1,000 UNITS (25 MCG) TAB PO SCH (09:23)
[2022-02-06] MEDS: Fenofibrate 48 MG TAB PO SCH (09:24)
[2022-02-06] MEDS: Pantoprazole 40 MG VIAL IVP SCH ×2 (09:24→20:59)
[2022-02-06 10:58] LABS: Chloride 91 mmol/L (98-107); Sodium 135 mmol/L (136-145)
[2022-02-06 10:59] LABS: Calcium 8.7 mg/dL (7.8-10.44); Glucose 119 mg/dL (83-110)
[2022-02-06 11:01] LABS: Anion Gap 16 mmol/L (10-20); Carbon Dioxide 31 mmol/L (23-31)
[2022-02-06 11:03] LABS: Calc. Creatinine Clearance 56 mL/min (70-130); Estimated GFR 67
[2022-02-06 11:04] LABS: BUN (Urea Nitrogen) 17 mg/dL (9.8-20.1)
[2022-02-06] MEDS ORDERED: Potassium Chloride 20 MEQ TAB PO SCH (11:15)
[2022-02-06] MEDS: Potassium Bicarbonate/Cit Ac 20 MEQ TAB PO SCH ×2 (12:52→16:32)
[2022-02-06] MEDS: Melatonin 3 MG TAB PO PRN (20:59)
[2022-02-06] MEDS: Atorvastatin Calcium 20 MG TAB PO SCH (20:59)
[2022-02-06] MEDS: NIFEdipine XL 90 MG TAB PO SCH (20:59)
[2022-02-07] MEDS: Furosemide 20 MG/2 ML VIAL SLOW IVP SCH ×2 (06:16→13:08)
[2022-02-07] MEDS: Levothyroxine Sodium 50 MCG TAB PO SCH (06:17)
[2022-02-07 08:24] LABS: #Eosinphils 0.1 thou/uL (0.0-0.7); #Lymphocytes 0.5 thou/uL (1.20-3.40); #Monocytes 0.5 thou/uL (0.11-0.59); #Neutrophils 4.1 thou/uL (1.40-6.50); %Basophils 0.1 % (0.0-1.0); %Eosinophils 1.2 % (0.0-10.0); %Neutrophils 80.8 % (42.0-75.0); Hemoglobin 7.9 g/dL (12.0-16.0); Mean Corpuscular HGB CONC 32.1 g/dL (32.0-36.0); Mean Corpuscular Hemoglobin 33.7 pg (27.0-31.0); Mean Platelet Volume 7.2 fL (7.4-10.4); Platelet Count 270 10x3/uL (130-400); RBC Distribution Width 19.1 % (11.5-14.5); Red Blood Cell (RBC) Count 2.34 mill/uL (4.20-5.40); White Blood Cell (WBC) Count 5.1 10x3/uL (4.8-10.8)
[2022-02-07 08:32] LABS: Anion Gap 13 mmol/L (10-20); BUN (Urea Nitrogen) 18 mg/dL (9.8-20.1); Calc. Creatinine Clearance 56 mL/min (70-130); Calcium 8.7 mg/dL (7.8-10.44); Carbon Dioxide 36 mmol/L (23-31); Chloride 88 mmol/L (98-107); Estimated GFR 68; Glucose 130 mg/dL (83-110); Sodium 133 mmol/L (136-145)
[2022-02-07] MEDS: Folic Acid 1 MG TAB PO SCH (09:38)
[2022-02-07] MEDS: Cholecalciferol 1,000 UNITS (25 MCG) TAB PO SCH (09:38)
[2022-02-07] MEDS: Pantoprazole 40 MG VIAL IVP SCH (09:38)
[2022-02-07] MEDS: Fenofibrate 48 MG TAB PO SCH (09:38)
[2022-02-07 16:31] VITALS: BP 105/57; TEMP 98.3
== END 2022-02-07 19:37 | DRG 377 ==
LOC: ERS 23:00 → 2NO 02-03 03:47
PROVIDERS: ADMIT Internal Medicine; ATTEND Internal Medicine
PROC: 30233N1 Transfusion of Nonautologous Red Blood Cells into Peripheral Vein, Percutaneous Approach (ICD-10-PCS; 2022-02-03)
PROC: 0W3P8ZZ Control Bleeding in Gastrointestinal Tract, Via Natural or Artificial Opening Endoscopic (ICD-10-PCS; principal; 2022-02-05)
PROC: 0DB98ZX Excision of Duodenum, Via Natural or Artificial Opening Endoscopic, Diagnostic (ICD-10-PCS; 2022-02-05)
PROC: 0DB68ZX Excision of Stomach, Via Natural or Artificial Opening Endoscopic, Diagnostic (ICD-10-PCS; 2022-02-05)
PROC: 0DJD8ZZ Inspection of Lower Intestinal Tract, Via Natural or Artificial Opening Endoscopic (ICD-10-PCS; 2022-02-05)
DX: K31.811 Angiodysplasia of stomach and duodenum with bleeding (principal); Z66 Do not resuscitate; Z20.822 Contact with and (suspected) exposure to COVID-19; I50.33 Acute on chronic diastolic (congestive) heart failure; E87.1 Hypo-osmolality and hyponatremia; D62 Acute posthemorrhagic anemia; E87.6 Hypokalemia; E88.09 Other disorders of plasma-protein metabolism, not elsewhere classified; I11.0 Hypertensive heart disease with heart failure; E78.5 Hyperlipidemia, unspecified; I48.91 Unspecified atrial fibrillation; R13.10 Dysphagia, unspecified; I08.1 Rheumatic disorders of both mitral and tricuspid valves; I27.20 Pulmonary hypertension, unspecified; K57.30 Diverticulosis of large intestine without perforation or abscess without bleeding; Z79.899 Other long term (current) drug therapy; Z79.890 Hormone replacement therapy; Z90.49 Acquired absence of other specified parts of digestive tract; Z90.89 Acquired absence of other organs; Z90.721 Acquired absence of ovaries, unilateral; Z87.891 Personal history of nicotine dependence; Z79.01 Long term (current) use of anticoagulants
CPT/HCPCS: 36415; 36430; 71045; 80048; 80053; 82728; 83540; 83550; 83880; 84484; 85025; 86850; 86900; 86901; 88305; 93005; 96374; 96375; C9113; J1200; J1940; J2270; J2704; P9016; U0003; U0005

== ENCOUNTER 2022-02-17 09:21 | Inpatient (IN) | payer MEDICARE, BC ==
[2022-02-17 10:30] LABS: #Lymphocytes 0.2 thou/uL (1.20-3.40); #Monocytes 0.3 thou/uL (0.11-0.59); #Neutrophils 5.2 thou/uL (1.40-6.50); %Basophils 0.5 % (0.0-1.0); %Eosinophils 0.6 % (0.0-10.0); %Lymphocytes 3.8 % (21.0-51.0); %Monocytes 5.7 % (0.0-10.0); %Neutrophils 89.4 % (42.0-75.0); Hemoglobin 8.7 g/dL (12.0-16.0); Mean Corpuscular HGB CONC 30.2 g/dL (32.0-36.0); Mean Corpuscular Hemoglobin 31.1 pg (27.0-31.0); Mean Platelet Volume 7.6 fL (7.4-10.4); Platelet Count 306 10x3/uL (130-400); RBC Distribution Width 17.7 % (11.5-14.5); Red Blood Cell (RBC) Count 2.79 mill/uL (4.20-5.40); White Blood Cell (WBC) Count 5.8 10x3/uL (4.8-10.8)
[2022-02-17] MEDS ORDERED: Dexamethasone 4 mg/ml Vial ONE (10:40)
[2022-02-17 10:42] LABS: ALT (SGPT) 7 U/L (8-55); AST (SGOT) 8 U/L (5-34); Albumin 3.2 g/dL (3.4-4.8); Alkaline Phosphatase 47 U/L (40-110); Anion Gap 12 mmol/L (10-20); BUN (Urea Nitrogen) 15 mg/dL (9.8-20.1); Bilirubin, Total 0.6 mg/dL (0.2-1.2); Calc. Creatinine Clearance 0 mL/min (70-130); Calcium 8.7 mg/dL (7.8-10.44); Carbon Dioxide 27 mmol/L (23-31); Chloride 99 mmol/L (98-107); Estimated GFR 77; Globulin 2.7 g/dL (2.4-3.5); Glucose 129 mg/dL (83-110); Potassium 3.7 mmol/L (3.5-5.1); Protein, Total 5.9 g/dL (5.8-8.1); Sodium 134 mmol/L (136-145)
[2022-02-17] MEDS ORDERED: Albuterol 200 PUFF (6.7GM INHALER) ONE (11:21)
[2022-02-17] MEDS ORDERED: Acetaminophen 500 MG TAB ONE (11:21)
[2022-02-17] MEDS ORDERED: Cefepime 2 GM VIAL ONE (12:22)
[2022-02-17] MEDS ORDERED: VANCOMYCIN 1.25 GM/250 ML BAG 1.25 GM in Premix Bag 1 BAG IVPB SCH (13:00)
[2022-02-17] MEDS ORDERED: HYDROcodone/Acetaminophen 5/325 mg Tablet PO PRN (15:42)
[2022-02-17] MEDS ORDERED: Acetaminophen 650 MG Suppository PR PRN (15:42)
[2022-02-17] MEDS ORDERED: Acetaminophen 325 MG TAB PO PRN ×2 (15:42)
[2022-02-17] MEDS ORDERED: Calcium Carbonate 500 MG ChewTAB PO PRN (15:42)
[2022-02-17] MEDS ORDERED: Ondansetron PF 4 MG/2 ML Vial IVP PRN (15:42)
[2022-02-17] MEDS ORDERED: Melatonin 3 MG TAB PO PRN (18:10)
[2022-02-17] MEDS ORDERED: REMDESIVIR 200 MG in Sodium Chloride 0.9% 250 ML 210 ML IV SCH (21:00)
[2022-02-17 21:34] VITALS: BMI 30.9
[2022-02-18] MEDS: Budesonide 0.5 MG/2 ML NEB NEB SCH ×3 (00:43→17:15)
[2022-02-18] MEDS ORDERED: Albuterol 200 PUFF (6.7GM INHALER) ONE ×2 (00:52→01:57)
[2022-02-18] MEDS: Albuterol 200 PUFF (6.7GM INHALER) INH SCH ×8 (02:05→22:53)
[2022-02-18] MEDS: Atorvastatin Calcium 20 MG TAB PO SCH ×2 (03:09→20:43)
[2022-02-18] MEDS: NIFEdipine XL 90 MG TAB PO SCH ×2 (03:09→20:43)
[2022-02-18 06:34] LABS: ALT (SGPT) Less than 7 U/L (8-55); AST (SGOT) 21 U/L (5-34); Albumin 2.8 g/dL (3.4-4.8); Alkaline Phosphatase 40 U/L (40-110); Anion Gap 15 mmol/L (10-20); BUN (Urea Nitrogen) 15 mg/dL (9.8-20.1); Bilirubin, Direct 0.1 mg/dL (0.1-0.3); Bilirubin, Total 0.4 mg/dL (0.2-1.2); Calc. Creatinine Clearance 66 mL/min (70-130); Calcium 8.2 mg/dL (7.8-10.44); Carbon Dioxide 19 mmol/L (23-31); Chloride 105 mmol/L (98-107); Estimated GFR 77; Glucose 116 mg/dL (83-110); Potassium 4.3 mmol/L (3.5-5.1); Protein, Total 5.8 g/dL (5.8-8.1); Sodium 135 mmol/L (136-145)
[2022-02-18 07:12] LABS: #Lymphocytes 0.3 thou/uL (1.20-3.40); #Monocytes 0.4 thou/uL (0.11-0.59); #Neutrophils 4.9 thou/uL (1.40-6.50); %Basophils 0.8 % (0.0-1.0); %Lymphocytes 5.6 % (21.0-51.0); %Monocytes 7.2 % (0.0-10.0); %Neutrophils 86.4 % (42.0-75.0); Hemoglobin 8.7 g/dL (12.0-16.0); Mean Corpuscular HGB CONC 30.9 g/dL (32.0-36.0); Mean Corpuscular Hemoglobin 32.1 pg (27.0-31.0); Mean Platelet Volume 8.1 fL (7.4-10.4); Platelet Count 256 10x3/uL (130-400); RBC Distribution Width 17.7 % (11.5-14.5); Red Blood Cell (RBC) Count 2.71 mill/uL (4.20-5.40); White Blood Cell (WBC) Count 5.6 10x3/uL (4.8-10.8)
[2022-02-18] MEDS ORDERED: Melatonin 3 MG TAB PO SCH (08:45)
[2022-02-18] MEDS ORDERED: Dexamethasone 10 MG/ML VIAL SLOW IVP SCH (09:00)
[2022-02-18] MEDS ORDERED: Ascorbic Acid 500 mg Chewable Tablet ONE (09:37)
[2022-02-18] MEDS ORDERED: Folic Acid 1 MG TAB ONE (09:37)
[2022-02-18] MEDS ORDERED: Zinc Sulfate 220 MG CAP ONE (09:37)
[2022-02-18] MEDS ORDERED: Enoxaparin Sodium 40 MG/0.4 ML SYRINGE ONE (09:37)
[2022-02-18] MEDS: Levothyroxine Sodium 50 MCG TAB PO SCH (09:40)
[2022-02-18] MEDS: Cholecalciferol (Vitamin D3) 400 UNITS TAB PO SCH (09:41)
[2022-02-18] MEDS: Ascorbic Acid 500 mg Chewable Tablet PO SCH ×4 (09:41→22:56)
[2022-02-18] MEDS: Enoxaparin Sodium 40 MG/0.4 ML SYRINGE SC SCH (09:42)
[2022-02-18] MEDS: Folic Acid 1 MG TAB PO SCH (09:43)
[2022-02-18] MEDS: Zinc Sulfate 220 MG CAP PO SCH (09:43)
[2022-02-18] MEDS: Fenofibrate 48 MG TAB PO SCH (09:43)
[2022-02-18] MEDS: Melatonin 3 MG TAB PO SCH (20:43)
[2022-02-18] MEDS: REMDESIVIR 100 MG in Sodium Chloride 0.9% 250 ML 230 ML IV SCH (20:43)
[2022-02-19] MEDS: Albuterol 200 PUFF (6.7GM INHALER) INH SCH ×6 (04:07→20:50)
[2022-02-19] MEDS: Ascorbic Acid 500 mg Chewable Tablet PO SCH ×4 (05:56→20:49)
[2022-02-19] MEDS: Levothyroxine Sodium 50 MCG TAB PO SCH (06:00)
[2022-02-19] MEDS: Budesonide 0.5 MG/2 ML NEB NEB SCH (06:05)
[2022-02-19 07:07] LABS: ALT (SGPT) Less than 7 U/L (8-55); AST (SGOT) 7 U/L (5-34); Albumin 2.8 g/dL (3.4-4.8); Alkaline Phosphatase 44 U/L (40-110); Bilirubin, Direct 0.2 mg/dL (0.1-0.3); Bilirubin, Total 0.4 mg/dL (0.2-1.2); Protein, Total 5.4 g/dL (5.8-8.1)
[2022-02-19 08:08] LABS: Anion Gap 13 mmol/L (10-20); BUN (Urea Nitrogen) 15 mg/dL (9.8-20.1); Calc. Creatinine Clearance 67 mL/min (70-130); Calcium 8.4 mg/dL (7.8-10.44); Carbon Dioxide 24 mmol/L (23-31); Chloride 105 mmol/L (98-107); Estimated GFR 80; Glucose 74 mg/dL (83-110); Potassium 3.2 mmol/L (3.5-5.1); Sodium 139 mmol/L (136-145)
[2022-02-19] MEDS: Cholecalciferol (Vitamin D3) 400 UNITS TAB PO SCH (09:39)
[2022-02-19] MEDS: Fenofibrate 48 MG TAB PO SCH (09:39)
[2022-02-19] MEDS: Enoxaparin Sodium 40 MG/0.4 ML SYRINGE SC SCH (09:39)
[2022-02-19] MEDS: Zinc Sulfate 220 MG CAP PO SCH (09:40)
[2022-02-19] MEDS: Folic Acid 1 MG TAB PO SCH (09:40)
[2022-02-19] MEDS: Benzonatate 100 MG CAP PO PRN (09:53)
[2022-02-19] MEDS: REMDESIVIR 100 MG in Sodium Chloride 0.9% 250 ML 230 ML IV SCH (20:47)
[2022-02-19] MEDS: NIFEdipine XL 90 MG TAB PO SCH (20:48)
[2022-02-19] MEDS: Atorvastatin Calcium 20 MG TAB PO SCH (20:48)
[2022-02-19] MEDS: Melatonin 3 MG TAB PO SCH (20:49)
[2022-02-20] MEDS: Albuterol 200 PUFF (6.7GM INHALER) INH SCH ×6 (03:08→20:26)
[2022-02-20] MEDS: Budesonide 0.5 MG/2 ML NEB NEB SCH (03:09)
[2022-02-20] MEDS: Ascorbic Acid 500 mg Chewable Tablet PO SCH ×3 (05:53→20:25)
[2022-02-20] MEDS: Levothyroxine Sodium 50 MCG TAB PO SCH (05:53)
[2022-02-20 06:54] LABS: #Eosinphils 0.1 thou/uL (0.0-0.7); #Lymphocytes 0.4 thou/uL (1.20-3.40); #Monocytes 0.3 thou/uL (0.11-0.59); #Neutrophils 4.7 thou/uL (1.40-6.50); %Basophils 0.2 % (0.0-1.0); %Eosinophils 1.2 % (0.0-10.0); %Lymphocytes 7.5 % (21.0-51.0); %Neutrophils 85.1 % (42.0-75.0); Hemoglobin 8.5 g/dL (12.0-16.0); Mean Corpuscular HGB CONC 30.5 g/dL (32.0-36.0); Mean Corpuscular Hemoglobin 31.7 pg (27.0-31.0); Mean Platelet Volume 7.9 fL (7.4-10.4); Platelet Count 298 10x3/uL (130-400); RBC Distribution Width 17.9 % (11.5-14.5); Red Blood Cell (RBC) Count 2.68 mill/uL (4.20-5.40); White Blood Cell (WBC) Count 5.5 10x3/uL (4.8-10.8)
[2022-02-20 07:06] LABS: ALT (SGPT) Less than 7 U/L (8-55); AST (SGOT) 7 U/L (5-34); Alkaline Phosphatase 45 U/L (40-110); Bilirubin, Direct 0.2 mg/dL (0.1-0.3); Bilirubin, Total 0.4 mg/dL (0.2-1.2); Iron 34 ug/dL (50-170); Iron Binding Capacity, Total 194 mcg/dL (265-497); Protein, Total 5.6 g/dL (5.8-8.1)
[2022-02-20 07:07] LABS: CRP (Inflammatory) 5.75 mg/dL (= or < 0.5)
[2022-02-20] MEDS: Fenofibrate 48 MG TAB PO SCH (08:44)
[2022-02-20] MEDS: Zinc Sulfate 220 MG CAP PO SCH (08:44)
[2022-02-20] MEDS: Cholecalciferol (Vitamin D3) 400 UNITS TAB PO SCH (08:44)
[2022-02-20] MEDS: Folic Acid 1 MG TAB PO SCH (08:44)
[2022-02-20] MEDS: Enoxaparin Sodium 40 MG/0.4 ML SYRINGE SC SCH (08:45)
[2022-02-20] MEDS: Guaifenesin DM 100-10/5 ML UDCUP PO PRN (08:59)
[2022-02-20] MEDS ORDERED: Dexamethasone 4 mg/ml Vial SLOW IVP SCH (12:30)
[2022-02-20] MEDS: Mometasone 200 MCG/Formoterol 5 MCG 120 PUFF INHALER INH SCH (18:29)
[2022-02-20] MEDS: NIFEdipine XL 90 MG TAB PO SCH (20:25)
[2022-02-20] MEDS: Melatonin 3 MG TAB PO SCH (20:25)
[2022-02-20] MEDS: Atorvastatin Calcium 20 MG TAB PO SCH (20:25)
[2022-02-20] MEDS: REMDESIVIR 100 MG in Sodium Chloride 0.9% 250 ML 230 ML IV SCH (20:26)
[2022-02-21] MEDS: Albuterol 200 PUFF (6.7GM INHALER) INH SCH ×6 (03:25→20:24)
[2022-02-21] MEDS: Levothyroxine Sodium 50 MCG TAB PO SCH (06:08)
[2022-02-21] MEDS: Ascorbic Acid 500 mg Chewable Tablet PO SCH ×3 (06:09→20:22)
[2022-02-21] MEDS: Mometasone 200 MCG/Formoterol 5 MCG 120 PUFF INHALER INH SCH ×2 (06:10→18:09)
[2022-02-21 06:28] LABS: #Lymphocytes 0.3 thou/uL (1.20-3.40); #Monocytes 0.3 thou/uL (0.11-0.59); #Neutrophils 4.1 thou/uL (1.40-6.50); %Eosinophils 0.4 % (0.0-10.0); %Lymphocytes 6.4 % (21.0-51.0); %Neutrophils 87.2 % (42.0-75.0); Hemoglobin 8.4 g/dL (12.0-16.0); Mean Corpuscular HGB CONC 29.8 g/dL (32.0-36.0); Mean Corpuscular Hemoglobin 30.8 pg (27.0-31.0); Mean Platelet Volume 7.7 fL (7.4-10.4); Platelet Count 292 10x3/uL (130-400); RBC Distribution Width 17.9 % (11.5-14.5); Red Blood Cell (RBC) Count 2.74 mill/uL (4.20-5.40); White Blood Cell (WBC) Count 4.7 10x3/uL (4.8-10.8)
[2022-02-21 06:53] LABS: ALT (SGPT) Less than 7 U/L (8-55); AST (SGOT) 6 U/L (5-34); Albumin 2.9 g/dL (3.4-4.8); Alkaline Phosphatase 48 U/L (40-110); Anion Gap 13 mmol/L (10-20); BUN (Urea Nitrogen) 17 mg/dL (9.8-20.1); Bilirubin, Direct 0.2 mg/dL (0.1-0.3); Bilirubin, Total 0.4 mg/dL (0.2-1.2); Calc. Creatinine Clearance 64 mL/min (70-130); Calcium 8.8 mg/dL (7.8-10.44); Carbon Dioxide 24 mmol/L (23-31); Chloride 105 mmol/L (98-107); Estimated GFR 75; Glucose 133 mg/dL (83-110); Potassium 3.4 mmol/L (3.5-5.1); Protein, Total 5.6 g/dL (5.8-8.1); Sodium 139 mmol/L (136-145)
[2022-02-21] MEDS ORDERED: Potassium Bicarbonate/Cit Ac 20 MEQ TAB PO SCH (08:00)
[2022-02-21] MEDS ORDERED: Dexamethasone 4 mg/ml Vial SLOW IVP SCH (09:00)
[2022-02-21] MEDS: Folic Acid 1 MG TAB PO SCH (09:39)
[2022-02-21] MEDS: Guaifenesin DM 100-10/5 ML UDCUP PO PRN (09:39)
[2022-02-21] MEDS: Cholecalciferol (Vitamin D3) 400 UNITS TAB PO SCH (09:39)
[2022-02-21] MEDS: Zinc Sulfate 220 MG CAP PO SCH (09:39)
[2022-02-21] MEDS: Enoxaparin Sodium 40 MG/0.4 ML SYRINGE SC SCH (09:40)
[2022-02-21] MEDS: Fenofibrate 48 MG TAB PO SCH ×2 (14:53→15:45)
[2022-02-21] MEDS: NIFEdipine XL 90 MG TAB PO SCH (20:22)
[2022-02-21] MEDS: Atorvastatin Calcium 20 MG TAB PO SCH (20:22)
[2022-02-21] MEDS: REMDESIVIR 100 MG in Sodium Chloride 0.9% 250 ML 230 ML IV SCH (20:22)
[2022-02-21] MEDS: Melatonin 3 MG TAB PO SCH (20:22)
[2022-02-22] MEDS: Albuterol 200 PUFF (6.7GM INHALER) INH SCH ×6 (03:49→21:53)
[2022-02-22] MEDS: Ascorbic Acid 500 mg Chewable Tablet PO SCH ×3 (06:27→21:53)
[2022-02-22] MEDS: Levothyroxine Sodium 50 MCG TAB PO SCH (06:27)
[2022-02-22] MEDS: Mometasone 200 MCG/Formoterol 5 MCG 120 PUFF INHALER INH SCH ×2 (06:35→18:50)
[2022-02-22] MEDS: Zinc Sulfate 220 MG CAP PO SCH (09:02)
[2022-02-22] MEDS: Folic Acid 1 MG TAB PO SCH (09:02)
[2022-02-22] MEDS: Enoxaparin Sodium 40 MG/0.4 ML SYRINGE SC SCH (09:02)
[2022-02-22] MEDS: Cholecalciferol (Vitamin D3) 400 UNITS TAB PO SCH (09:02)
[2022-02-22] MEDS: Fenofibrate 48 MG TAB PO SCH (09:02)
[2022-02-22 10:11] LABS: Anion Gap 12 mmol/L (10-20); BUN (Urea Nitrogen) 18 mg/dL (9.8-20.1); Calc. Creatinine Clearance 58 mL/min (70-130); Carbon Dioxide 28 mmol/L (23-31); Chloride 107 mmol/L (98-107); Estimated GFR 67; Glucose 112 mg/dL (83-110); Potassium 3.7 mmol/L (3.5-5.1); Sodium 143 mmol/L (136-145)
[2022-02-22] MEDS: Iron Polysaccharides Complex 150 MG CAP PO SCH (16:00)
[2022-02-22] MEDS: Benzonatate 100 MG CAP PO PRN (16:01)
[2022-02-22] MEDS: NIFEdipine XL 90 MG TAB PO SCH (21:52)
[2022-02-22] MEDS: Atorvastatin Calcium 20 MG TAB PO SCH (21:53)
[2022-02-22] MEDS: Melatonin 3 MG TAB PO SCH (21:53)
[2022-02-23] MEDS: Albuterol 200 PUFF (6.7GM INHALER) INH SCH ×6 (03:00→22:52)
[2022-02-23] MEDS: Levothyroxine Sodium 50 MCG TAB PO SCH (04:50)
[2022-02-23] MEDS: Ascorbic Acid 500 mg Chewable Tablet PO SCH ×3 (04:51→20:59)
[2022-02-23] MEDS: Mometasone 200 MCG/Formoterol 5 MCG 120 PUFF INHALER INH SCH ×2 (05:37→18:30)
[2022-02-23] MEDS: Cholecalciferol (Vitamin D3) 400 UNITS TAB PO SCH (09:10)
[2022-02-23] MEDS: Folic Acid 1 MG TAB PO SCH (09:10)
[2022-02-23] MEDS: Fenofibrate 48 MG TAB PO SCH (09:10)
[2022-02-23] MEDS: Zinc Sulfate 220 MG CAP PO SCH (09:10)
[2022-02-23] MEDS: Iron Polysaccharides Complex 150 MG CAP PO SCH (09:10)
[2022-02-23] MEDS: Enoxaparin Sodium 40 MG/0.4 ML SYRINGE SC SCH (09:43)
[2022-02-23 10:57] LABS: Anion Gap 13 mmol/L (10-20); BUN (Urea Nitrogen) 13 mg/dL (9.8-20.1); CRP (Inflammatory) 3.89 mg/dL (= or < 0.5); Calc. Creatinine Clearance 68 mL/min (70-130); Calcium 8.9 mg/dL (7.8-10.44); Carbon Dioxide 25 mmol/L (23-31); Chloride 108 mmol/L (98-107); Estimated GFR 81; Glucose 120 mg/dL (83-110); Potassium 3.6 mmol/L (3.5-5.1); Sodium 142 mmol/L (136-145)
[2022-02-23] MEDS: NIFEdipine XL 90 MG TAB PO SCH (20:58)
[2022-02-23] MEDS: Atorvastatin Calcium 20 MG TAB PO SCH (20:59)
[2022-02-23] MEDS: Melatonin 3 MG TAB PO SCH (20:59)
[2022-02-24] MEDS: Albuterol 200 PUFF (6.7GM INHALER) INH SCH ×4 (02:33→15:26)
[2022-02-24] MEDS: Ascorbic Acid 500 mg Chewable Tablet PO SCH ×3 (05:16→13:12)
[2022-02-24] MEDS: Levothyroxine Sodium 50 MCG TAB PO SCH (05:16)
[2022-02-24] MEDS: Mometasone 200 MCG/Formoterol 5 MCG 120 PUFF INHALER INH SCH (05:17)
[2022-02-24] MEDS: Folic Acid 1 MG TAB PO SCH (08:43)
[2022-02-24] MEDS: Zinc Sulfate 220 MG CAP PO SCH (08:43)
[2022-02-24] MEDS: Enoxaparin Sodium 40 MG/0.4 ML SYRINGE SC SCH (08:43)
[2022-02-24] MEDS: Iron Polysaccharides Complex 150 MG CAP PO SCH (08:43)
[2022-02-24] MEDS: Cholecalciferol (Vitamin D3) 400 UNITS TAB PO SCH (08:43)
[2022-02-24] MEDS: Fenofibrate 48 MG TAB PO SCH (08:44)
[2022-02-24 17:18] VITALS: BP 134/64; TEMP 97.3
== END 2022-02-24 17:14 | disposition home health service (06) | DRG 177 ==
LOC: ERS 09:21 → T4-B 12:10 → ERHOLD 12:15 → OBSVTOIN 15:42 → T4-B 02-18 14:21
PROVIDERS: ADMIT Internal Medicine; ATTEND Internal Medicine
PROC: 8E0ZXY6 Isolation (ICD-10-PCS; principal; 2022-02-17)
PROC: XW033E5 Introduction of Remdesivir Anti-infective into Peripheral Vein, Percutaneous Approach, New Technology Group 5 (ICD-10-PCS; 2022-02-17)
PROC: 3E0333Z Introduction of Anti-inflammatory into Peripheral Vein, Percutaneous Approach (ICD-10-PCS; 2022-02-17)
DX: U07.1 COVID-19 (principal); J12.82 Pneumonia due to coronavirus disease 2019; J96.01 Acute respiratory failure with hypoxia; I48.11 Longstanding persistent atrial fibrillation; I50.32 Chronic diastolic (congestive) heart failure; Z66 Do not resuscitate; E78.5 Hyperlipidemia, unspecified; Z96.642 Presence of left artificial hip joint; E87.6 Hypokalemia; D64.9 Anemia, unspecified; Z79.899 Other long term (current) drug therapy; Z79.890 Hormone replacement therapy; Z90.49 Acquired absence of other specified parts of digestive tract; Z90.710 Acquired absence of both cervix and uterus
CPT/HCPCS: 36415; 71045; 71250; 80048; 80076; 82728; 83540; 83550; 83880; 84145; 84484; 85025; 86140; 87040; 87077; 87149; 87804; 93005; 94640; 96365; 96366; 96375; J0248; J0692; J1100; J1650; J3370; J7050